=== PATIENT | male | born 2000 | race Two or more races ===

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

== ENCOUNTER 2024-01-14 13:13 | Emergency (ER) | payer OTHER, MEDICAID ==
[~2024-01-14] VITALS: Ht 170.2 cm; Wt 127.0 kg
[2024-01-14 13:55] VITALS: O2SAT 99
== END 2024-01-14 16:24 | disposition home or self-care (01) ==
LOC: ER 13:13
DX: Z88.7 Allergy status to serum and vaccine (principal); E88.810 Metabolic syndrome; V43.62XA Car passenger injured in collision with other type car in traffic accident, initial encounter; Y93.89 Activity, other specified; Y92.410 Unspecified street and highway as the place of occurrence of the external cause; Y99.8 Other external cause status
CPT/HCPCS: A4606; A4663

== ENCOUNTER 2025-02-03 21:55 | Emergency (ER) | payer MEDICAID, OTHER ==
[~2025-02-03] VITALS: Ht 157.5 cm; Wt 127.9 kg
[2025-02-03 21:55] VITALS: BP 136/90
[2025-02-03] MEDS ORDERED: IBUPROFEN 600 MG TABLET ONE (22:47)
[2025-02-03] MEDS ORDERED: HYDROCODONE/APAP 5-325MG TABLET ONE (22:47)
[2025-02-03] MEDS: IBUPROFEN 600 MG TABLET PO ONE (22:51)
[2025-02-03] MEDS: HYDROCODONE/APAP 5-325MG TABLET PO ONE (22:51)
[2025-02-03] MEDS ORDERED: HYDR-4209 PO (23:17)
[2025-02-03 23:50] VITALS: BP 136/90; O2SAT 97
[2025-02-03 23:51] VITALS: TEMP 98
== END 2025-02-03 23:50 | disposition home or self-care (01) ==
LOC: ER 21:55
DX: S63.502A Unspecified sprain of left wrist, initial encounter (principal); Y93.89 Activity, other specified; Y99.8 Other external cause status; V89.2XXA Person injured in unspecified motor-vehicle accident, traffic, initial encounter; Y92.410 Unspecified street and highway as the place of occurrence of the external cause; S50.02XA Contusion of left elbow, initial encounter; S63.501A Unspecified sprain of right wrist, initial encounter; Z88.7 Allergy status to serum and vaccine
CPT/HCPCS: 73090; 73110; 73130; A4606; A4663

== ENCOUNTER 2025-02-08 13:10 | Emergency (ER) | payer OTHER ==
[~2025-02-08] VITALS: Ht 172.7 cm; Wt 127.0 kg
[~2025-02-08 13:10] MED LIST: HYDR-4209 PO
[2025-02-08 13:14] VITALS: BP 115/64
[2025-02-08 13:52] VITALS: BP 116/61; O2SAT 99
== END 2025-02-08 13:55 | disposition home or self-care (01) ==
LOC: ER 13:10
DX: M25.562 Pain in left knee (principal); M25.531 Pain in right wrist; Z88.7 Allergy status to serum and vaccine; V49.9XXA Car occupant (driver) (passenger) injured in unspecified traffic accident, initial encounter; Y93.89 Activity, other specified; Y92.410 Unspecified street and highway as the place of occurrence of the external cause; Y99.8 Other external cause status
CPT/HCPCS: A4606; A4663